=== PATIENT | male | born 1950 | race Caucasian/White ===

== ENCOUNTER 2018-07-25 01:24 | Emergency (ER) | payer MEDICARE, OTHER ==
--- NOTE | 2018-07-25 03:31 | EDM.PDOC ---
ED HPI GENERAL MEDICAL PROBLEM - General Chief Complaint: Cardiovascular Problem Stated Complaint: RHB HIGH BLOOD PRESSURE Time Seen by Provider: 07/25/18 02:45 Source of Information: Reports: Patient - History of Present Illness INITIAL COMMENTS - FREE TEXT/NARRATIVE: See documentation, dictated. ED ROS GENERAL - Review of Systems Review Of Systems: ROS reveals no pertinent complaints other than HPI. ED EXAM, GENERAL - Physical Exam Exam: See Below Course - Vital Signs Last Recorded V/S: Last Vital Signs Temp 36.2 C 07/25/18 01:40 Pulse 76 07/25/18 01:40 Resp 13 07/25/18 01:40 BP 167/88 H 07/25/18 01:40 Pulse Ox 99 07/25/18 01:40 - Orders/Labs/Meds Labs: Laboratory Tests 07/25/18 Range/Units 02:16 Troponin I < 0.017 (0.00-0.056) ng/mL Departure - Departure Time of Disposition: 03:29 Disposition: Home, Self-Care 01 Clinical Impression: Palpitations Hypertensive heart disease Qualifiers: Heart failure presence: without heart failure Qualified Code(s): I11.9 - Hypertensive heart disease without heart failure Instructions: Palpitations, [id number], How to Take Your Blood Pressure, Easy -to-Read Referrals: PCP,Not In Area [Primary Care Provider] - Additional Instructions: Resume your Losartan, as discussed. Call your provider in [facility] and inform him that you were instructed to resume your Losartan. Arrange followup.
--- NOTE | 2018-07-25 05:05 | ER ---
REASON FOR EMERGENCY ROOM VISIT: Palpitations and hypertension. HISTORY OF PRESENT ILLNESS: This is a 67-year-old man who was on losartan up until 2 days ago when he decided to discontinue it, awoke with palpitations and checked his blood pressure and noted that it was elevated at 190/80. He did not take his pulse, but he thought it was rapid. He had a "funny sensation" and points to his epigastrium when this happened, but denies that it was uncomfortable or painful nor was there any tightness. He did not have any jaw pain, arm pain, nausea, vomiting, or diaphoresis. This funny sensation was very transient and only lasting a couple of seconds and occurred while he was having palpitations. Up until 2 days ago, he was on losartan, and he discontinued this because his blood pressure was ranging between 105 and 120 over 70 to 80. He thought he could probably stop his losartan. He did not check with his provider in [place] and did this on his own. Additionally, the patient thinks that it could somehow be related to his taking ibuprofen as he relates a similar episode he experienced 5 years ago after taking ibuprofen, a medication he seldom takes. He took 3 ibuprofen yesterday and wonders if this is not somehow related to his episode last night. He denies any exertional chest pain. He has no known history of heart disease apart from his hypertension. PAST MEDICAL HISTORY: 1. Hypertension. 2. No history of heart disease. 3. Normal colonoscopy. 4. Surgery for anal fissure. 5. Right knee arthroscopy. 6. Normal lipid and cholesterol profile in February. CURRENT MEDICATIONS: Losartan as described above. ALLERGIES: None to medications. PHYSICAL EXAMINATION: GENERAL: Reveals an alert, pleasant man, in no acute distress. VITAL SIGNS: See his EMR. HEENT: Unremarkable. NECK: No JVD. No bruits. No adenopathy. CHEST: Clear to auscultation with good air exchange. No wheezes, rhonchi, or rales. CARDIAC: Regular rate without murmur. No rub. ABDOMEN: Soft and nontender. There is no hepatosplenomegaly. EXTREMITIES: No ankle edema. Normal pulses bilaterally. LABORATORY DATA: His troponin 1 was less than 0.017. A 12-lead EKG showed no acute changes and no rhythm disturbances (NSR). IMPRESSION: Episode of hypertension and possibly tachycardia causing palpitations while at home and a history of recently self-discontinuing losartan. His BP was only mildly elevated when he was seen in the ER and his pulse was in the 70s. PLAN: I had a long discussion with him over the fact that I think his stopping the medication without discussing with his physician was ill-advised. He understands and agrees with this wholeheartedly. I feel he should follow up with his primary care provider who was in [place] and he assured me that this will be done. I urged him to give them a call tomorrow to discuss the advisability of continuing his losartan, but I told him that I think he should get back on this medication until otherwise instructed. All questions were answered. They understand and agree with this plan. CANDELARIO /[id number] MTDSandrita
== END 2018-07-25 03:30 | disposition home or self-care (01) ==
LOC: JD.ED 01:24
DX: I11.9 Hypertensive heart disease without heart failure (principal); R00.2 Palpitations
CPT/HCPCS: 36415; 84484; 99283

== ENCOUNTER 2020-06-22 00:43 | Emergency (ER) | payer MEDICARE, OTHER ==
--- NOTE | 2020-06-22 01:17 | EDM.PDOC ---
ED HPI GENERAL MEDICAL PROBLEM - General Chief Complaint: Cardiovascular Problem Stated Complaint: RAPID PULSE/HIGH BP Time Seen by Provider: 06/22/20 01:16 - History of Present Illness INITIAL COMMENTS - FREE TEXT/NARRATIVE: 69-year-old male presents the emergency room after having a hypertensive and tachycardic episode at home. His blood pressure was much higher than normal he was diaphoretic and his pulse was in the 110 range. The patient recently was started on a CPAP machine. The patient has had many episodes like this in the past the CPAP machine was supposed to help with it and he is just been started on this tonight was night 13 using it. And he seems to be tolerating it pretty well however he had an episode tonight. He is still having 5 apneic episodes and multiple hypopneas per hour but this is much less than were used to be. Patient did not have any associated chest pain pain or pressure. The patient awoke this morning he was diaphoretic and very anxious. Prior to being started on the CPAP the patient has had episodes like this would wake up sweaty and tachycardic. From what the patient is saying before starting this he was having 40 apneic events an hour. - Related Data Allergies Allergy/AdvReac Type Severity Reaction Status Date / Time levofloxacin [From Levaquin] Allergy Rash Verified 06/22/20 00:54 Home Meds: Home Meds Losartan Potassium 50 mg PO DAILY 06/22/20 [History] amLODIPine Besylate [Amlodipine Besylate] 5 mg PO BID 06/22/20 [History] Past Medical History Cardiovascular History: Reports: Hypertension Oncologic (Cancer) History: Reports: Prostate - Past Surgical History GI Surgical History: Reports: Colonoscopy, Other (See Below) Other GI Surgeries/Procedures: anal fissure sx Male Surgical History: Reports: Prostatectomy Musculoskeletal Surgical History: Reports: Arthroscopic Knee Social & Family History - Family History Family Medical History: Noncontributory - Tobacco Use Smoking Status *Q: Never Smoker - Recreational Drug Use Recreational Drug Use: No ED ROS GENERAL - Review of Systems Review Of Systems: See Below Constitutional: Reports: No Symptoms HEENT: Reports: No Symptoms Respiratory: Reports: Other (Only with the HPI) Cardiovascular: Reports: Other (Only with the HPI). Denies: Chest Pain Endocrine: Reports: No Symptoms GI/Abdominal: Reports: No Symptoms Neurological: Reports: No Symptoms ED EXAM, GENERAL - Physical Exam Exam: See Below Exam Limited By: No Limitations General Appearance: Alert, No Apparent Distress Head: Atraumatic, Normocephalic Neck: Normal Inspection, Supple, Non-Tender, Full Range of Motion. No: Lymphadenopathy (L), Lymphadenopathy (R) Respiratory/Chest: No Respiratory Distress, Lungs Clear, Normal Breath Sounds Cardiovascular: Normal Peripheral Pulses, Regular Rate, Rhythm, No Edema GI/Abdominal: Normal Bowel Sounds, Soft, Non-Tender Back Exam: Normal Inspection. No: CVA Tenderness (L), CVA Tenderness (R) Extremities: Normal Inspection, No Pedal Edema Neurological: Alert, Oriented, Normal Cognition EKG INTERPRETATION EKG Date: 06/22/20 Rhythm: NSR Kamrar: LAD-Left Kamrar Deviation P-Wave: Present QRS: Normal ST-T: Normal QT: Normal Comparison: No Change (No significant change from 818) EKG Interpretation Comments: Abnormal with leftward axis Course - Vital Signs Last Recorded V/S: Last Vital Signs Temp 36.9 C 06/22/20 00:54 Pulse 90 06/22/20 00:54 Resp 16 06/22/20 00:54 BP Pulse Ox 98 06/22/20 00:54 - Orders/Labs/Meds Orders: Active Orders 24 hr Category Date Time Status EKG Documentation Completion [RC] ASDIRECTED Care 06/22/20 01:10 Active Chest 2V [CR] Stat Exams 06/22/20 01:44 Taken EKG 12 Lead [EK] Stat Ther 06/22/20 01:09 Ordered Labs: Laboratory Tests 06/22/20 06/22/20 06/22/20 Range/Units 01:20 01:20 01:20 WBC 7.14 (4.23-9.07) K/mm3 RBC 5.14 (4.63-6.08) M/mm3 Hgb 15.9 (13.7-17.5) gm/dl Hct 43.6 (40.1-51.0) % MCV 84.8 (79.0-92.2) fl MCH 30.9 (25.7-32.2) pg MCHC 36.5 H (32.2-35.5) g/dl RDW Std Deviation 42.2 (35.1-43.9) fL Plt Count 167 (163-337) K/mm3 MPV 10.0 (9.4-12.3) fl Neut % (Auto) 69.8 H (34.0-67.9) % Lymph % (Auto) 17.5 L (21.8-53.1) % Clark % (Auto) 8.5 (5.3-12.2) % Eos % (Auto) 3.2 (0.8-7.0) Baso % (Auto) 0.7 (0.1-1.2) % Neut # (Auto) 4.98 (1.78-5.38) K/mm3 Lymph # (Auto) 1.25 L (1.32-3.57) K/mm3 Clark # (Auto) 0.61 (0.30-0.82) K/mm3 Eos # (Auto) 0.23 (0.04-0.54) K/mm3 Baso # (Auto) 0.05 (0.01-0.08) K/mm3 Sodium 135 L (136-145) mEq/L Potassium 3.6 (3.5-5.1) mEq/L Chloride 102 (98-107) mEq/L Carbon Dioxide 23 (21-32) mEq/L Anion Gap 13.6 (5-15) BUN 12 (7-18) mg/dL Creatinine 1.3 (0.7-1.3) mg/dL Est Cr Clr Drug Dosing 55.37 mL/min Estimated GFR (MDRD) 55 (>60) mL/min BUN/Creatinine Ratio 9.2 L (14-18) Glucose 110 (80-115) mg/dL Calcium 8.6 (8.5-10.1) mg/dL Total Bilirubin 0.6 (0.2-1.0) mg/dL AST 16 (15-37) U/L ALT 30 (16-63) U/L Alkaline Phosphatase 62 (46-116) U/L Troponin I < 0.017 (0.00-0.056) ng/mL Total Protein 7.0 (6.4-8.2) g/dl Albumin 3.7 (3.4-5.0) g/dl Globulin 3.3 gm/dL Albumin/Globulin Ratio 1.1 (1-2) - Re-Assessments/Exams Free Text/Narrative Re-Assessment/Exam: 06/22/20 04:19 Laboratory evaluation including a negative troponin, chest x-ray are unremarkable EKG shows leftward axis no acute changes 06/22/20 04:23 Has a situation with the patient labs look good EKG does not show any changes chest x-ray is unremarkable he is a little frustrated what to do with the situation keeps occurring. I recommended he should see a sleep specialist he should talk to his regular doctor about getting this done. Patient agrees with this and will pursue this option Departure - Departure Time of Disposition: 04:23 Disposition: Home, Self-Care 01 Clinical Impression: Tachycardia, Hypertension, Obstructive sleep apnea, Central sleep apnea Referrals: PCP,None [Primary Care Provider] - Forms: ED Department Discharge Additional Instructions: Return to the emergency room with any questions problems or worsening symptoms. Discussed the situation with your regular physician in [place] and see about getting a referral to a sleep specialist. Keep using your CPAP, it does not sound like it is perfect however he you are having much fewer events than you were prior to using it. Sepsis Event Note (ED) - Evaluation Sepsis Screening Result: No Definite Risk - Focused Exam Vital Signs: Vital Signs Temp Pulse Resp Pulse Ox 06/22/20 00:54 36.9 C 90 16 98 - My Orders Last 24 Hours: My Active Orders 06/22/20 01:09 EKG 12 Lead [EK] Stat 06/22/20 01:10 EKG Documentation Completion [RC] ASDIRECTED 06/22/20 01:44 Chest 2V [CR] Stat - Assessment/Plan Last 24 Hours: My Active Orders 06/22/20 01:09 EKG 12 Lead [EK] Stat 06/22/20 01:10 EKG Documentation Completion [RC] ASDIRECTED 06/22/20 01:44 Chest 2V [CR] Stat
--- NOTE | 2020-06-22 06:27 | CR ---
Chest: 2 views of the chest were obtained. Comparison: No prior chest imaging is available. Heart size and mediastinum are normal. Lungs are clear with no acute parenchymal change. Bony structures are unremarkable. Impression: 1. Nothing acute is appreciated on 2 view chest x-ray. Diagnostic code #1 This report was dictated in MDT
== END 2020-06-22 04:33 | disposition home or self-care (01) ==
LOC: JD.ED 00:43
DX: I10 Essential (primary) hypertension (principal); G47.33 Obstructive sleep apnea (adult) (pediatric); G47.31 Primary central sleep apnea; Z79.899 Other long term (current) drug therapy; Z88.1 Allergy status to other antibiotic agents
CPT/HCPCS: 36415; 71046; 71046-26; 80053; 84484; 85025; 93005; 99285-25

== ENCOUNTER 2020-06-27 03:07 | Emergency (ER) | payer MEDICARE, OTHER ==
--- NOTE | 2020-06-27 04:28 | EDM.PDOC ---
ED HPI GENERAL MEDICAL PROBLEM - General Chief Complaint: Chest Pain Stated Complaint: SOB/CHEST PRESSURE Time Seen by Provider: 06/27/20 03:16 Source of Information: Reports: Patient, Family () History Limitations: Reports: No Limitations - History of Present Illness INITIAL COMMENTS - FREE TEXT/NARRATIVE: Mr. Tinoco is a very pleasant 69-year-old gentleman with a past medical history significant for both obstructive and central sleep apnea, as diagnosed by a sleep study, on CPAP 9 for 13 days, from approximately 06/10/2020 through 06/23/2020, but discontinued due to intolerance. The patient states that after his CPAP was discontinued, he was not placed on any other treatment, and that his sleep medicine physician is on a 2-week vacation. Medical records indicate that the patient was seen in this ED on 07/25/2018 and again this past 06/22/2020, with a report of waking up in the middle of the night with rapid palpitations and dyspnea. He would check his blood pressure, finding it to be high, but by the time he came to the ED, which takes him about an hour, his blood pressure had normalized. He also reports that he was seen in an ED in [place], and one in [place], for the same complaint, and that work-ups have always been unremarkable. The patient now returns to the ED with the same complaint. While he was initially tachycardic at 106 bpm, his heart rate has since normalized, and his blood pressure was normal upon arrival to the ED. In contrast to the triage note, the patient reports that he feels like something is wrong, but he denies having chest pain or chest pressure. Additionally, the patient states that he has had a previous cardiac evaluation, finding no coronary blockages. He states that during the day, he has no troubles whatsoever, and he is not limited by exertion. Other than his recurrent nighttime palpitations, dyspnea, and elevated blood pressure, the patient denies recent fever, chills, sore throat, ear pain, nasal or sinus congestion, cough, chest pain, nausea, vomiting, constipation, diarrhea, abdominal pain, urinary symptoms, recent weight gain or weight loss, recent bloody bowel movements or black bowel movements, recent joint aches, headaches, or rashes. The patient's PCP is Dr. Jessica Zuniga. His Sleep Medicine/Neurologist is Dr. Daniel Ortiz. Mid-Sternal Chest Pain Score (Numeric/FACES): 5 - Related Data Allergies Allergy/AdvReac Type Severity Reaction Status Date / Time levofloxacin [From Levaquin] Allergy Rash Verified 06/27/20 03:18 Home Meds: Home Meds Losartan Potassium 50 mg PO DAILY 06/22/20 [History] amLODIPine Besylate [Amlodipine Besylate] 5 mg PO BID 06/22/20 [History] Past Medical History HEENT History: Reports: Impaired Vision (wears glasses) Cardiovascular History: Reports: Hypertension Respiratory History: Reports: Sleep Apnea (obstructive + central, untreated) Gastrointestinal History: Reports: Other (See Below) (Anal fissure, s/p f issurotomy) Neurological History: Reports: Other (See Below) (Left sciatica due to DDD) Oncologic (Cancer) History: Reports: Prostate (s/p radical prostatectomy) - Past Surgical History HEENT Surgical History: Reports: Oral Surgery (wisdom teeth extraction) GI Surgical History: Reports: Colonoscopy (x 2), Other (See Below) (Fissurotomy) Musculoskeletal Surgical History: Reports: Arthroscopic Knee (right) Oncologic Surgical History: Reports: Other (See Below) (Radical prostatectomy) Social & Family History - Family History Family Medical History: Noncontributory - Tobacco Use Smoking Status *Q: Never Smoker - Alcohol Use Alcohol Use History: No - Recreational Drug Use Recreational Drug Use: No - Living Situation & Occupation Living situation: Reports: , with Spouse Occupation: Retired ED ROS GENERAL - Review of Systems Review Of Systems: Comprehensive ROS is negative, except as noted in HPI. ED EXAM, GENERAL - Physical Exam Exam: See Below Exam Limited By: No Limitations General Appearance: Alert, WD/WN, No Apparent Distress Eye Exam: Bilateral Eye: EOMI, Normal Inspection Ears: Normal External Exam, Hearing Grossly Normal Nose: Normal Inspection Throat/Mouth: Normal Inspection, Normal Lips, Normal Voice, No Airway Compromise Head: Atraumatic, Normocephalic Neck: Normal Inspection, Full Range of Motion Respiratory/Chest: No Respiratory Distress, Lungs Clear, Normal Breath Sounds, No Accessory Muscle Use Cardiovascular: Normal Peripheral Pulses, Regular Rate, Rhythm, No Edema, No Gallop, No JVD, No Murmur, No Rub Peripheral Pulses: 3+: Radial (L), Radial (R) GI/Abdominal: Normal Bowel Sounds, Soft, Non-Tender, No Organomegaly, No Distention, No Abnormal Bruit, No Mass (Male) Exam: Deferred Rectal (Males) Exam: Deferred Back Exam: Normal Inspection, Full Range of Motion, NT Extremities: Normal Inspection, Normal Range of Motion, No Pedal Edema, Normal Capillary Refill Neurological: Alert, Oriented, Normal Cognition, No Motor/Sensory Deficits Psychiatric: Normal Affect Skin Exam: Warm, Dry, Intact, Normal Color, No Rash EKG INTERPRETATION EKG Date: 06/27/20 Time: 03:12 Rhythm: NSR Rate (Beats/Min): 97 Preston: Normal P-Wave: Enlarged (LAE) QRS: Normal ST-T: Normal QT: Normal Comparison: No Change (06/22/2020) Course - Vital Signs Last Recorded V/S: Last Vital Signs Temp 36.9 C 06/27/20 03:14 Pulse 106 H 06/27/20 03:14 Resp 12 06/27/20 03:14 BP Pulse Ox 99 06/27/20 03:14 - Orders/Labs/Meds Orders: Active Orders 24 hr Category Date Time Status EKG 12 Lead [EKG Documentation Completion] [RC] STAT Care 06/27/20 03:31 Active - Re-Assessments/Exams Free Text/Narrative Re-Assessment/Exam: 06/27/20 04:23 As above, the patient has a history of both obstructive and central sleep apnea. He was on CPAP for 13 days, from approximately 06/10/2020 through 06/23/2020, but has been off it since, due to apparent intolerance, however, he continues to wake up in the middle of the night with shortness of breath and rapid palpitations, then, when he checks his blood pressure, he finds that it is elevated. Here in the ED, his blood pressure is normal, and his physical exam is unremarkable. He was seen in this ED for virtually identical symptoms this past 06/22/2020, and our medical records indicate that he was seen for the same thing on 07/25/2018. Additionally, he states that he was seen in an ED in [place] on one occasion, and an ED in [place] on one occasion. An ECG obtained at triage indicates that he is developing left atrial enlargement, but there are no ischemic changes, and he tells me that a prior cardiac work-up showed no blockages. Neither the patient nor I feel that there are any great mysteries here. The patient is suffering from untreated sleep apnea. His current sleep medicine physician is on vacation for 2 weeks, and I agree with the patient that it is not reasonable for him to have to wait until she returns, therefore I am going to refer the patient to two pulmonary/critical care/sleep medicine physicians at [facility], with the hope that the patient can get into see one of them fairly soon. Departure - Departure Time of Disposition: 04:27 Disposition: Home, Self-Care 01 Condition: Good Clinical Impression: Sleep apnea - Discharge Information *PRESCRIPTION DRUG MONITORING PROGRAM REVIEWED*: Not Applicable *COPY OF PRESCRIPTION DRUG MONITORING REPORT IN PATIENT SINDI: Not Applicable Instructions: Sleep Apnea, [id number] Referrals: Jessica Zuniga [Ordering Only Provider] - Yusuf Mcclure MD [Ordering Only Provider] - Zahida Phillips MD [Ordering Only Provider] - Forms: ED Department Discharge Additional Instructions: You were seen in the emergency room for repeated episodes of waking up in the middle of the night with rapid palpitations and shortness of breath, then checking your blood pressure, finding it to be high. Based on your history and physical examination, your symptoms are due to untreated sleep apnea, both obstructive and central. While you are currently under the care of a sleep medicine physician, she is on vacation for 2 weeks, therefore we are recommending that you contact either Dr. Yusuf Mcclure, at [phone], or Dr. Zahida Phillips, at [phone]. Both are pulmonary/critical care/sleep medicine physicians at [facility]. Make sure that the medical office receptionist assistant understands that you are following up from the ER, and that we recommend that you be seen as soon as possible. If any other problems, please do not hesitate to return to the ER. Sepsis Event Note (ED) - Evaluation Sepsis Screening Result: No Definite Risk - Focused Exam Vital Signs: Vital Signs Temp Pulse Resp Pulse Ox 06/27/20 03:14 36.9 C 106 H 12 99 - My Orders Last 24 Hours: My Active Orders 06/27/20 03:31 EKG 12 Lead [EKG Documentation Completion] [RC] STAT - Assessment/Plan Last 24 Hours: My Active Orders 06/27/20 03:31 EKG 12 Lead [EKG Documentation Completion] [RC] STAT
== END 2020-06-27 04:40 | disposition home or self-care (01) ==
LOC: JD.ED 03:07
DX: G47.30 Sleep apnea, unspecified (principal); I10 Essential (primary) hypertension; Z88.1 Allergy status to other antibiotic agents; Z79.899 Other long term (current) drug therapy; Z98.890 Other specified postprocedural states
CPT/HCPCS: 93005; 93010; 99282; 99283-25